=== PATIENT | male | born 1990 | race Caucasian/White ===

== ENCOUNTER 2020-12-30 23:39 | Emergency (ER) | payer MEDICAID ==
[~2020-12-30] VITALS: Ht 170.2 cm; Wt 77.1 kg
[2020-12-30 23:47] VITALS: BP 125/90
--- NOTE | 2020-12-30 23:50 | NUR ---
TO LOBBY A/W BED AMBULATORY
--- NOTE | 2020-12-31 00:21 | NUR ---
PT TAKEN TO RAD VIA W/C
--- NOTE | 2020-12-31 00:31 | NUR ---
PT RETURNED VIA W/C. PT PLACED IN GOWN AND ATTACHED TO CARDIAC MONITORING SYSTEM. ALL NEEDS MET. WILL CONTINUE TO MONITOR.
[2020-12-31 00:32] LABS: APPEARANCE,URINE CLEAR (CLEAR); BILIRUBIN,URINE NEGATIVE (NEGATIVE); BLOOD, URINE NEGATIVE (NEGATIVE); COLOR,URINE YELLOW (YELLOW); LEUKOCYTE ESTERASE ,URINE NEGATIVE (NEGATIVE); NITRITE, URINE NEGATIVE (NEGATIVE); UGLUCOSE NEGATIVE (NEGATIVE)
--- NOTE | 2020-12-31 00:32 | NUR ---
OXYGEN ORDER PLACED BUT NOT INDICATED AT THIS TIME. O2 SAT 100% RA.
[2020-12-31 00:34] LABS: BASOPHILS % (AUTO) 0.4 % (0.0-2.0); EOSINOPHILS # (AUTO) 0.2 K/uL (0-0.4); EOSINOPHILS % (AUTO) 2.6 % (0.0-4.0); HEMATOCRIT 48.4 % (36-52); HEMOGLOBIN 16.5 g/dL (12.0-18.0); LYMPHOCYTES # (AUTO) 1.5 K/uL (2.0-11.5); LYMPHOCYTES % (AUTO) 18.5 % (20.5-51.1); MEAN CORPUSCULAR HEMOGLOBIN 30 pg (27-31); MEAN CORPUSCULAR HGB CONC 34 g/dL (33-37); MEAN CORPUSCULAR VOLUME 87.6 fL (80-94); MONOCYTES # (AUTO) 0.4 K/uL (0.8-1.0); MONOCYTES % (AUTO) 5.3 % (1.7-9.3); NEUTROPHILS # (AUTO) 5.9 K/uL (1.8-7.7); NEUTROPHILS % (AUTO) 73.2 % (42.2-75.2); PLATELET COUNT (AUTO) 150 K/uL (140-450); RED BLOOD CELL COUNT(AUTO) 5.53 MIL/uL (4.20-6.10); RED CELL DISTRIBUTION WIDTH 14.3 % (11.6-13.7); WHITE BLOOD COUNT (AUTO) 8.1 K/uL (4.8-10.8)
[2020-12-31 00:55] LABS: BARBITURATE, URINE NEGATIVE ng/ml (NEG <=200); BENZODIAZEPINE, URINE NEGATIVE ng/mL (NEG <=200); CANNABINOID, URINE POSITIVE ng/mL (NEG <=50); COCAINE, URINE NEGATIVE ng/mL (NEG <=300); OPIATE, URINE NEGATIVE ng/mL (NEG <=2000); PHENCYCLIDINE SCREEN,URINE NEGATIVE ng/mL (NEG <=25)
[2020-12-31 01:04] LABS: ALBUMIN 4.4 g/dL (3.4-5.0); ANION GAP 9.4 (8-16); CARBON DIOXIDE 30.6 mmol/L (21-32); TOTAL BILIRUBIN 0.4 mg/dL (0.0-1.0)
[2020-12-31 01:12] LABS: ACETAMINOPHEN < 0.5 ug/ml (10-30); SALICYLATE < 2.8 mg/dL (2.8-20.0)
--- NOTE | 2020-12-31 01:19 | NUR ---
WITH PERMISSION OF PT, UPDATE PROVIDED TO PT SIGNIFICANT OTHER.
[2020-12-31 01:48] VITALS: BP 107/71
--- NOTE | 2020-12-31 01:49 | NUR ---
PT SEEN WITH EYES CLOSED. VISIBLE CHEST RISE AND FALL NOTED. VSS. PT HAS NO COMPLAINT OF PAIN AT THIS TIME. PT DOES NOT ENDORSE FEELINGS OF DIZZINESS AT THIS TIME.
--- NOTE | 2020-12-31 01:50 | NUR ---
DR. DUNHAM AT BEDSIDE.
--- NOTE | 2020-12-31 01:53 | NUR ---
Patient discharged with v/s stable. Written and verbal after care instructions given and explained. Patient verbalized understanding. Ambulatory with steady gait. All questions addressed prior to discharge. Advised to follow up with PMD.
== END 2020-12-31 01:53 | disposition home or self-care (01) ==
LOC: MED 23:39
DX: R55 Syncope and collapse (principal); R11.0 Nausea
CPT/HCPCS: 36415; 70450; 71045; 80053; 80305; 81003; 82550; 83880; 84484; 85025; 99285; G0480; G0482; 93005; Q0092